=== PATIENT | male | born 1950 | race Two or more races ===

== ENCOUNTER 2025-03-05 14:51 | Emergency (ER) | payer MEDICARE, OTHER, SELFPAY ==
[2025-03-05 14:54] VITALS: BP 142/85
[2025-03-05 15:11] LABS: Hematocrit 40.5 % (39.0-52.0); Hemoglobin 12.0 g/dL (13.0-18.0); Mean Corp Hgb Conc. 29.6 g/dL (33.0-37.0); Mean Corpuscular Volume 78.9 fL (80.0-94.0); Nucleated Red Blood Cells % 0 % (-); Platelet Count 330 10^3/uL (130-400); Red Cell Dist. Width 18.8 % (11.5-14.5)
[2025-03-05 15:57] LABS: ALT (SGPT) 21 U/L (0-50); AST (SGOT) 23 U/L (17-59); Albumin 4.6 g/dl (3.5-5.0); Alkaline Phosphatase 94 U/L (38-126); Blood Urea Nitrogen 15 mg/dl (9-20); Calcium 8.8 mg/dl (8.4-10.2); Carbon Dioxide 23 mmol/L (22-30); Chloride 104 mmol/L (98-107); Glucose 109 mg/dl (70-99); Potassium 4.5 mmol/L (3.5-5.1); Sodium 134 mmol/L (135-145); Total Protein 9.0 g/dl (6.3-8.2); eGFR > 60.00
--- NOTE | 2025-03-05 16:41 | EDRN ---
Prasanth MARINO in room w/ pt at this time.
--- NOTE | 2025-03-05 16:46 | ED.GENMED ---
History of Present Illness
<Mayra Rodriguez CAR RUNNER - Last Filed: 03/06/25 15:58>
General
Chief Complaint: Male Genito-Urinary Symptoms
Source: patient
Exam Limitations: none
Time Seen by Provider: 03/05/25 16:34
Nursing documentation reviewed up to this point in time: agreed with except (NOT rectal bleeding, bleeding, clots from urethra)
History of Present Illness
History of Present Illness:
74 yo male w h/o enlarged prostate, w laser surgery 2013, here for difficulty urinating, bleeding with clots from urethra since yesterday. Feels he is not emptying his bladder.
This has occurred a couple of times since the prostate lasering. After the initial surgery, there was a subsequent procedure in 2014 to clean up scar tissue. Last episode was 8 months ago and it resolved on own. Saw [facility] in October and
all was well.
Denies f/c/n/v, denies abdominal pain.
Past History
<Mayra Rodriguez, CAR RUNNER - Last Filed: 03/06/25 15:58>
Past History
ED Past Medical History: HTN and Hypercholesterolemia
ED Past Surgical History: Urological
Social History
Tobacco: Non-smoker
Alcohol: None
Personal:
Living: with family
Employment: Retired
Review of Systems
<Mayra Rodriguez, CAR RUNNER - Last Filed: 03/06/25 15:58>
Review of Systems
Allergies reviewed?: Yes
All Other Systems: ROS reviewed and negative except as documented in HPI and ROS
Constitutional: Denies fever
Respiratory: Denies trouble breathing
Cardiac: Denies chest pain
ABD/GI: Denies abdominal pain or nausea
: Reports frequency, difficulty voiding and bleeding; Denies dysuria
Phy Exam
<Mayra Rodriguez, CAR RUNNER - Last Filed: 03/06/25 15:58>
Physical Exam
Physical Exam:
GENERAL: No acute distress. A&Ox3.
CONSTITUTIONAL: Afebrile.
RESPIRATORY: Regular respirations, nonlabored, lungs clear.
CARDIOVASCULAR: Regular rate and rhythm, no murmurs, no rubs.
GI: Soft, non distended, mild suprapubic tenderness, normal BS
: Normal appearing, circumcised, external genitalia, no discharge
MUSCULOSKELETAL: Moves with ease. Well perfused.
SKIN: Warm, dry, pink
PSYCH: Normal mood and affect. Well kept, interactive and appropriate
NEUROLOGIC: Awake, alert and oriented. No focal neurological deficits
Course
<Mayra Rodriguez, CAR RUNNER - Last Filed: 03/06/25 15:58>
Orders/Labs/Results
Orders:
Orders
03/05/25 15:02
Type And Crossmatch [Type+Screen] Urgent
Complete Blood Count/With Diff Urgent
Comprehensive Metabolic Panel Urgent
03/05/25 16:45
Bladder Scan- Treatment ONCE
03/05/25 16:52
CBI- Treatment PRN
Solution: NSS
Irrigate to Clear?: Yes
03/05/25 16:53
Esquivel [Esquivel Placement- Treatment] ONCE
Reason for insertion: Acute Retention
Lidocaine 2% [Lidocaine Uro-Jet 2%] 1 syringe .ROUTE .[facility]
03/05/25 17:42
Urinalysis Reflex To Culture Urgent
Date Specimen was Collected: 03/05/25
Time Specimen was Collected: 17:39
Comment: catheterized spec.
Urine Microscopic Reflex Cult Urgent
Urine Culture Urgent
KIARA Source: U
Specimen Description:
Date Specimen was Collected: 03/05/25
Time Specimen was Collected: 17:39
03/05/25 18:39
CefTRIAXone [Rocephin] 1,000 mg IV NOW STA
03/05/25 18:40
Add On - Microbiology Urgent
Tests Added?: Urine culture
03/05/25 18:56
ABO2 Urgent
BBK Wristband Number:
Associate notified that ABO2 has been ordered: [id number]
Date: 03/05/25
Time: 15:11
Medical Bill Processor ID: [id number]
Abnormal Lab Results
03/05/25 03/05/25
15:02 17:42
WBC 18.9 H 10^3/uL
(4.8-10.8)
Hgb 12.0 L g/dL
(13.0-18.0)
MCV 78.9 L fL
(80.0-94.0)
MCH 23.4 L pg
(27.0-31.0)
MCHC 29.6 L g/dL
(33.0-37.0)
RDW 18.8 H %
(11.5-14.5)
MPV 12.0 H fL
(7.4-10.4)
Abs Immat Gran (auto) 0.2 H 10^3/uL
(0-0.05)
Absolute Neuts (auto) 16.0 H 10^3/uL
(1.4-6.5)
Absolute Monos (auto) 0.8 H 10^3/uL
(0.1-0.6)
Immature Gran % 1.0 H %
(0-0.5)
Neutrophils % 84.7 H %
(42.2-75.2)
Lymphocytes % 9.5 L %
(20.5-51.1)
Sodium 134 L mmol/L
(135-145)
Glucose 109 H mg/dl
(70-99)
Total Bilirubin 2.7 H mg/dl
(0.2-1.3)
Total Protein 9.0 H g/dl
(6.3-8.2)
Urine Ketones 1+ A
(Negative)
Ur Occult Blood Reflex 4+ A
(Negative)
Leukocyte Esterase Rfl 1+ A
(Negative)
Urine RBC >100 A /HPF
(0-2)
Urine Albumin (Reflex) 4+ A
(Neg - Trace)
03/05/25 15:02
03/05/25 15:02
Vital Signs
Initial and Last Documented VS:
Initial Vital Signs
Temp Pulse Resp BP Pulse Ox
98.3 F 71 18 142/85 96
03/05/25 14:54 03/05/25 14:54 03/05/25 14:54 03/05/25 14:54 03/05/25 14:54
Last Documented Vital Signs
Temp Pulse Resp BP Pulse Ox
98.3 F 61 16 106/67 93
03/05/25 14:54 03/05/25 18:00 03/05/25 18:00 03/05/25 18:00 03/05/25 18:00
Rental Coordinator consulted with Physician
Rental Coordinator consulted with physician?: Yes (Tran)
<Rocky Mayfield, DO - Last Filed: 03/05/25 19:11>
Orders/Labs/Results
Orders:
Orders
03/05/25 15:02
Type And Crossmatch [Type+Screen] Urgent
Complete Blood Count/With Diff Urgent
Comprehensive Metabolic Panel Urgent
03/05/25 16:45
Bladder Scan- Treatment ONCE
03/05/25 16:52
CBI- Treatment PRN
Solution: NSS
Irrigate to Clear?: Yes
03/05/25 16:53
Esquivel [Esquivel Placement- Treatment] ONCE
Reason for insertion: Acute Retention
Lidocaine 2% [Lidocaine Uro-Jet 2%] 1 syringe .ROUTE .[facility]-MED ONE
03/05/25 17:42
Urinalysis Reflex To Culture Urgent
Date Specimen was Collected: 03/05/25
Time Specimen was Collected: 17:39
Comment: catheterized spec.
Urine Microscopic Reflex Cult Urgent
Urine Culture Urgent
KIARA Source: U
Specimen Description:
Date Specimen was Collected: 03/05/25
Time Specimen was Collected: 17:39
03/05/25 18:39
CefTRIAXone [Rocephin] 1,000 mg IV NOW STA
03/05/25 18:40
Add On - Microbiology Urgent
Tests Added?: Urine culture
03/05/25 18:56
ABO2 Urgent
BBK Wristband Number:
Associate notified that ABO2 has been ordered: [id number]
Date: 03/05/25
Time: 15:11
Medical Bill Processor ID: [id number]
Abnormal Lab Results
03/05/25 03/05/25
15:02 17:42
WBC 18.9 H 10^3/uL
(4.8-10.8)
Hgb 12.0 L g/dL
(13.0-18.0)
MCV 78.9 L fL
(80.0-94.0)
MCH 23.4 L pg
(27.0-31.0)
MCHC 29.6 L g/dL
(33.0-37.0)
RDW 18.8 H %
(11.5-14.5)
MPV 12.0 H fL
(7.4-10.4)
Abs Immat Gran (auto) 0.2 H 10^3/uL
(0-0.05)
Absolute Neuts (auto) 16.0 H 10^3/uL
(1.4-6.5)
Absolute Monos (auto) 0.8 H 10^3/uL
(0.1-0.6)
Immature Gran % 1.0 H %
(0-0.5)
Neutrophils % 84.7 H %
(42.2-75.2)
Lymphocytes % 9.5 L %
(20.5-51.1)
Sodium 134 L mmol/L
(135-145)
Glucose 109 H mg/dl
(70-99)
Total Bilirubin 2.7 H mg/dl
(0.2-1.3)
Total Protein 9.0 H g/dl
(6.3-8.2)
Urine Ketones 1+ A
(Negative)
Ur Occult Blood Reflex 4+ A
(Negative)
Leukocyte Esterase Rfl 1+ A
(Negative)
Urine RBC >100 A /HPF
(0-2)
Urine Albumin (Reflex) 4+ A
(Neg - Trace)
03/05/25 15:02
03/05/25 15:02
Vital Signs
Initial and Last Documented VS:
Initial Vital Signs
Temp Pulse Resp BP Pulse Ox
98.3 F 71 18 142/85 96
03/05/25 14:54 03/05/25 14:54 03/05/25 14:54 03/05/25 14:54 03/05/25 14:54
Last Documented Vital Signs
Temp Pulse Resp BP Pulse Ox
98.3 F 61 16 106/67 93
03/05/25 14:54 03/05/25 18:00 03/05/25 18:00 03/05/25 18:00 03/05/25 18:00
<Mayra Rodriguez CAR RUNNER - Last Filed: 03/06/25 15:58>
MDM/Problems Addressed
Differential Diagnosis Includes:
UTI, hemorrhagic cystitis, malignancy
MDM/Problems Addressed:
74 yo male w h/o enlarged prostate, w laser surgery 2013, here for difficulty urinating, bleeding with clots from urethra since yesterday. Feels he is not emptying his bladder.
This has occurred a couple of times since the prostate lasering. After the initial surgery, there was a subsequent procedure in 2014 to clean up scar tissue. Last episode was 8 months ago and it resolved on own. Saw [facility] in October and
all was well.
Denies f/c/n/v, denies abdominal pain.
Afebrile, NAD
Plan:
- Order a bladder ultrasound to assess post-void residual.
- Obtain a urine sample for analysis if the patient voids again.
Bladder scan: >550 ml post void.
CBI ordered.
5:45 p.m.
CBI running, initially thaddeus red, thick, no clots, now Cranberry colored.
U/A pending
6:30 p.m.
Urine shows no infection
Consulted Urology Dr. Barraza who recommends CBI till clearing, and DC home with catheter in and f/u with [facility]
If it doesn't clear, admit to Hospitalist.
With WBC 18.9, Recommends empirically treat with Rocephin . Urine culture ordered as add on.
8:00 p.m.
Urine pale pink, no clots, OK for discharge
Pt will call his Urologist tomorrow.
03/06/25:
Spoke with , pt unable to get appt. until 03/18 so she called [facility] and has appt tomorrow with Dr. Mckoy.
Esquivel draining light pink urine
Urine culture negative so did not call in rx for further antibiotic
<Mayra Rodriguez NP - Last Filed: 03/06/25 15:58>
*Pulse Oximetry
SaO2: 96
Oxygen Mode of Delivery: Room air
Patient hypoxic: not evaluated
*Critical Care Note
Total Time (30-74mins, 75-104mins- exclusive of procedures): Not Applicable
ED Attending Note
<Mayra Rodriguez CAR RUNNER - Last Filed: 03/06/25 15:58>
-
Portions of this chart may have been created with voice recognition software.� Occasional wrong word or��sound alike� substitutions may have occurred due to the inherent limitations of voice recognition software.
<Rocky Mayfield DO - Last Filed: 03/05/25 19:11>
ED Attending Note
Patient seen and examined by attending physician: Yes
I performed the substantive portion of visit, reviewed & personally made and approve the management plan that is documented in note by myself or LUZMARIA.: Yes
ED Attending Note:
I evaluated the patient at bedside. The patient is well-appearing and is afebrile. Of note the patient does have an white count of 18.9 and 1 dose of Rocephin was given. Three-way Esquivel catheter was placed and he was also placed on CBI.
Discharge Plan
Departure
Patient Disposition: Home (Routine Discharge)
Date of Disposition: 03/05/25
Time of Disposition: 20:10
Patient with high blood pressure during this ER visit?: No
Condition: Good
Discharge Problem:
Hematuria, Acute urinary retention
Instructions: How to Care for Your Esquivel Catheter, Male, Blood in the Urine (Hematuria), Adult (DC), Urinary retention - Discharge instructions
Prescriptions:
No Action
ascorbic acid (vitamin C) [Vitamin C] 1,000 mg Tablet
1,000 mg PO DAILY
atorvastatin 10 mg Tablet
10 mg PO QPM
amlodipine 2.5 mg Tablet
2.5 mg PO DAILY@1600
aspirin 81 mg Tablet,Delayed Release (Dr/Ec)
81 mg PO DAILY
cholecalciferol (vitamin D3) 25 mcg (1,000 unit) Tablet
25 mcg PO DAILY
vitamin E
1 tab PO DAILY
Referrals:
Elliott Wang MD [Non-Admitting Privileges] - Tomorrow
Blaire Stephenson MD [Family Provider, [facility]]
Activity Restrictions/Additional Instructions:
As we discussed, call your urologist tomorrow, inform of today's visit and make follow-up appointment for sometime within the next week.
You should have your blood work rechecked as your white blood cell count was high
Interventions
Interventions:
*Risk Screen - Suicide Last Done: 03/05/25 14:54
*General Assessment Last Done: 03/05/25 17:37
*Neglect/Abuse Screening Last Done: 03/05/25 14:54
*ED- Fall Risk Assessment Last Done: 03/05/25 17:37
*ED COVID-19 Vaccine History Last Done: 03/05/25 17:37
*Nursing Disposition Last Done: 03/05/25 20:36
ED-Male Genitourinary Assessment Last Done: 03/05/25 20:13
Discharge Date and Time
Discharge Date/Time: 03/05/25 20:36
Print Language: EQUATORIAL GUINEAN
[2025-03-05 17:30] VITALS: BP 117/67
[2025-03-05 17:37] VITALS: BMI 22.6
[2025-03-05 17:51] LABS: Urine Character Bloody (Clear)
[2025-03-05 17:58] LABS: Urine Red Blood Cell >100 /HPF (0-2)
[2025-03-05 18:00] VITALS: BP 106/67
--- NOTE | 2025-03-05 18:30 | EDRN ---
Dr. Mayfield in room w/pt at this time.
[2025-03-05] MEDS: ROCEPHIN 1000 MG IV (19:01)
--- NOTE | 2025-03-05 20:33 | EDRN ---
provided discharge instructions regarding spain catheter. changed CBI bag to leg bag, pt and spouse verbalize instructions regarding care of catheter. separate bag provided for supplies. INT removed.
== END 2025-03-05 20:36 | disposition home or self-care (01) ==
LOC: EMR 14:51
PROVIDERS: Emergency Medicine; Registered Nurse; EMERGENCY PHYSICIAN Emergency Medicine; FAMILY PHYSICIAN Family Medicine
DX: R31.9 Hematuria, unspecified (principal); R33.9 Retention of urine, unspecified; N40.1 Benign prostatic hyperplasia with lower urinary tract symptoms; R35.0 Frequency of micturition; E78.00 Pure hypercholesterolemia, unspecified; I10 Essential (primary) hypertension; Z79.82 Long term (current) use of aspirin
CPT/HCPCS: 99284; 96374; 51798; 51702; 80053; 81003; 81015; 85025; 86850; 86900; 86901; 87086

== ENCOUNTER → 2025-04-23 09:52 | Outpatient (REF) | payer MEDICARE, OTHER, SELFPAY | LOC: RAD 09:52 | PROVIDERS: ATTENDING PHYSICIAN Specialist; FAMILY PHYSICIAN Family Medicine | DX: R31.0 Gross hematuria (principal) | CPT/HCPCS: 74178; Q9967 ==